=== PATIENT | female | born 1970 | race Caucasian/White ===

== ENCOUNTER 2019-11-19 03:05 | Emergency (ER) | payer OTHER ==
[~2019-11-19] VITALS: Ht 167.6 cm; Wt 129.3 kg
[2019-11-19 03:21] VITALS: BP 188/94
--- NOTE | 2019-11-19 03:21 | NUR ---
PT W/C ASSISTED TO BED #5
--- NOTE | 2019-11-19 03:32 | NUR ---
49 Y/O FEMALE C/O ABD PAIN X2100. +N/DIARRHEA. 09/28 BURNING PAIN IN MID UPPER ABD. PAIN UPON PALPATION. PT STATES THE PAIN STARTS AFTER SHE EATS AND HAS BEEN GOING ON FOR MONTHS. ACTIVE BS. LUNGS SOUNDS CLA. MEDHX- ULCER NKA
--- NOTE | 2019-11-19 03:32 | NUR ---
ERMD AT BEDSIDE EVALUATING PT
[2019-11-19] MEDS ORDERED: ONDANSETRON 4 MG/2 ML VIAL IVP ONE (03:40)
[2019-11-19] MEDS ORDERED: NACL 0.9% 1,000 ML IV ONE (03:40)
[2019-11-19] MEDS ORDERED: KETOROLAC 30 MG/ML VIAL IVP ONE (03:40)
[2019-11-19] MEDS ORDERED: PANTOPRAZOLE 40 MG INJ VIAL IVP ONE (03:40)
[2019-11-19 04:06] LABS: BASOPHILS # (AUTO) 0.1 K/uL (0.00-0.22); BASOPHILS % (AUTO) 0.8 % (0.0-2.0); EOSINOPHILS # (AUTO) 0.1 K/uL (0-0.4); HEMATOCRIT 43.2 % (36-48); HEMOGLOBIN 14.2 g/dL (12.0-16.0); LYMPHOCYTES # (AUTO) 2.6 K/uL (2.5-16.5); LYMPHOCYTES % (AUTO) 17.7 % (20.5-51.1); MEAN CORPUSCULAR HEMOGLOBIN 31 pg (27-31); MEAN CORPUSCULAR HGB CONC 33 g/dL (33-37); MONOCYTES # (AUTO) 0.9 K/uL (0.8-1.0); MONOCYTES % (AUTO) 6.1 % (1.7-9.3); NEUTROPHILS # (AUTO) 10.9 K/uL (1.8-7.7); PLATELET COUNT (AUTO) 389 K/uL (140-450); RED BLOOD CELL COUNT(AUTO) 4.59 MIL/uL (4.20-5.40); RED CELL DISTRIBUTION WIDTH 14.8 % (11.6-13.7); WHITE BLOOD COUNT (AUTO) 14.6 K/uL (4.8-10.8)
[2019-11-19 04:18] LABS: ALBUMIN 3.7 g/dL (3.4-5.0); ANION GAP 13.9 (8-16); CARBON DIOXIDE 26.9 mmol/L (21-32); CREATININE 0.9 mg/dL (0.6-1.3); POTASSIUM 4.8 mmol/L (3.5-5.1); TOTAL BILIRUBIN 0.3 mg/dL (0.0-1.0)
[2019-11-19 04:20] LABS: NEUTROPHILS % (AUTO) 74.4 % (42.2-75.2)
--- NOTE | 2019-11-19 04:33 | NUR ---
ULTRASOUND AT BEDSIDE
[2019-11-19] MEDS ORDERED: LIDOCAINE VISCOUS 2% 20 ML UDC PO ONE (05:00)
[2019-11-19] MEDS ORDERED: ALUMINUM HYD/MAG/SIMETHICONE 30 ML UDC PO ONE (05:00)
[2019-11-19] MEDS ORDERED: DICYCLOMINE HCL LIQUID 10 MG/5 ML UDC PO ONE (05:00)
[2019-11-19 05:57] VITALS: BP 150/95
--- NOTE | 2019-11-19 05:57 | NUR ---
Patient discharged with v/s stable. Written and verbal after care instructions given and explained. Patient alert, oriented and verbalized understanding of instructions. Ambulatory with steady gait. All questions addressed prior to discharge. ID band removed. IV Discontinued. Patient advised to follow up with PMD. Rx of CARAFATE AND PROTONIX given. Patient educated on indication of medication including possible reaction and side effects. Opportunity to ask questions provided and answered.
== END 2019-11-19 05:57 | disposition home or self-care (01) ==
LOC: MED 03:05
DX: K29.70 Gastritis, unspecified, without bleeding (principal); M54.5 Low back pain; R11.2 Nausea with vomiting, unspecified; F17.200 Nicotine dependence, unspecified, uncomplicated
CPT/HCPCS: 36415; 76705; 80053; 81002; 81025; 83690; 85025; 96361; 96374; 96375; 99284; C9113; J1885; J2405; J7030; Q0092

== ENCOUNTER 2020-07-01 13:24 | Emergency (ER) | payer OTHER ==
[~2020-07-01] VITALS: Ht 167.6 cm; Wt 99.8 kg
[2020-07-01 13:34] VITALS: BP 188/87
[2020-07-01] MEDS ORDERED: ONDANSETRON 4 MG/2 ML VIAL IVP STA (13:47)
[2020-07-01] MEDS ORDERED: MORPHINE SULFATE 4 MG/ML SYR IVP STA (13:47)
[2020-07-01] MEDS ORDERED: PANTOPRAZOLE 40 MG INJ VIAL IVP STA (13:47)
[2020-07-01] MEDS ORDERED: NACL 0.9% 2,000 ML IV ONE (13:50)
[2020-07-01 14:17] LABS: HEMATOCRIT 44.9 % (36-48); HEMOGLOBIN 14.8 g/dL (12.0-16.0); MEAN CORPUSCULAR HEMOGLOBIN 30 pg (27-31); MEAN CORPUSCULAR HGB CONC 33 g/dL (33-37); MEAN CORPUSCULAR VOLUME 91.8 fL (80-94); PLATELET COUNT (AUTO) 470 K/uL (140-450); RED BLOOD CELL COUNT(AUTO) 4.89 MIL/uL (4.20-5.40); RED CELL DISTRIBUTION WIDTH 14.2 % (11.6-13.7)
[2020-07-01] MEDS ORDERED: ONDA-24 SL (14:31)
[2020-07-01] MEDS ORDERED: PANT40EC PO (14:31)
[2020-07-01 14:35] LABS: ALBUMIN 3.8 g/dL (3.4-5.0); ANION GAP 11.5 (8-16); CARBON DIOXIDE 27.6 mmol/L (21-32); CREATININE 0.8 mg/dL (0.6-1.3); POTASSIUM 4.1 mmol/L (3.5-5.1); TOTAL BILIRUBIN 0.7 mg/dL (0.0-1.0)
[2020-07-01 15:01] LABS: WHITE BLOOD COUNT (AUTO) 27.9 K/uL (4.8-10.8)
[2020-07-01] MEDS ORDERED: PIPERACILLIN/TAZOBACTAM 3.375 GM in DEXTROSE 5% 50 ML IV ONE (15:05)
[2020-07-01] MEDS ORDERED: NACL 0.9% 1,000 ML IV ONE (15:05)
[2020-07-01] MEDS ORDERED: KETOROLAC 30 MG/ML VIAL IVP ONE (15:15)
[2020-07-01 16:30] LABS: EOSINOPHILS % (MANUAL) 1 % (0-4); LYMPHOCYTES % (MANUAL) 8 % (20-46); MONOCYTES % (MANUAL) 5 % (5-12)
[2020-07-01] MEDS ORDERED: PIPERACILLIN/TAZOBACTAM 3.375 GM VIAL IV ONE (16:39)
[2020-07-01] MEDS ORDERED: CIPR500T4 PO (17:26)
[2020-07-01] MEDS ORDERED: IBUP-2213 PO (17:26)
[2020-07-01 17:38] VITALS: BP 138/58
[2020-07-01 17:50] LABS: APPEARANCE,URINE SL CLOUDY (CLEAR); BILIRUBIN,URINE 1+ (NEGATIVE); BLOOD, URINE 3+ (NEGATIVE); COLOR,URINE YELLOW (YELLOW); LEUKOCYTE ESTERASE ,URINE 1+ (NEGATIVE); NITRITE, URINE NEGATIVE (NEGATIVE); PH,URINE 5.5 (5.0-9.0); UGLUCOSE NEGATIVE (NEGATIVE)
[2020-07-01 18:25] LABS: BARBITURATE, URINE NEGATIVE ng/ml (NEG <=200); BENZODIAZEPINE, URINE NEGATIVE ng/mL (NEG <=200); CANNABINOID, URINE NEGATIVE ng/mL (NEG <=50); COCAINE, URINE NEGATIVE ng/mL (NEG <=300); PHENCYCLIDINE SCREEN,URINE NEGATIVE ng/mL (NEG <=25)
[2020-07-01 18:26] LABS: OPIATE, URINE POSITIVE ng/mL (NEG <=2000)
[2020-07-01 18:49] LABS: RBC,URINE 20-50 /HPF (0-5)
== END 2020-07-01 17:39 | disposition home or self-care (01) ==
LOC: MED 13:24
DX: R10.13 Epigastric pain (principal)
CPT/HCPCS: 36415; 71045; 74176; 80053; 80305; 81001; 83605; 83690; 84484; 84702; 85025; 87040; 87086; 87426; 93005; 96361; 96365; 96375; 99285; C9113; J1885; J2270; J2405; J2543; J7030; J7060

== ENCOUNTER 2021-02-05 08:11 | Day surgery (SDC) | payer OTHER, SELFPAY ==
[~2021-02-05] VITALS: Ht 167.6 cm; Wt 104.3 kg
[~2021-02-05 08:11] MED LIST: CIPR500T4 PO; IBUP-2213 PO; ONDA-188 SL; PANT40EC PO
[2021-02-05] MEDS ORDERED: diphenhydrAMINE 50 MG/ML VIAL ONE (09:57)
[2021-02-05] MEDS ORDERED: fentaNYL citrate 0.05 MG/ML VIAL ONE ×2 (09:57→09:58)
[2021-02-05] MEDS ORDERED: MIDAZOLAM 2 MG/2 ML VIAL ONE ×2 (09:58→10:10)
[2021-02-05] MEDS ORDERED: LIDOCAINE 2% 100 MG/5 ML UJET TP ONE (09:58)
[2021-02-05] MEDS ORDERED: fentaNYL citrate 0.05 MG/ML VIAL IVP ONE (13:05)
[2021-02-05] MEDS ORDERED: MIDAZOLAM 2 MG/2 ML VIAL IVP ONE (13:05)
== END 2021-02-05 11:25 | disposition home or self-care (01) ==
LOC: MMU 08:11 → MDS 08:11
PROVIDERS: ATTEND Internal Medicine Gastroenterology
DX: Z12.11 Encounter for screening for malignant neoplasm of colon (principal); E11.9 Type 2 diabetes mellitus without complications; F17.210 Nicotine dependence, cigarettes, uncomplicated; Z79.82 Long term (current) use of aspirin; Z79.84 Long term (current) use of oral hypoglycemic drugs; Z79.899 Other long term (current) drug therapy; Z20.822 Contact with and (suspected) exposure to COVID-19
CPT/HCPCS: 45378; 82948; 87426; J2250; J3010; J1200